=== PATIENT | male | born 1965 | race Caucasian/White ===

== ENCOUNTER 2025-09-01 19:21 | Emergency (ER) | payer OTHER ==
[2025-09-01] MEDS ORDERED: METHOCARBAMOL 500 MG TAB PO ONE (19:35)
[2025-09-01] MEDS ORDERED: METHOCARBAMOL750 M1 PO (19:36)
[2025-09-01] MEDS ORDERED: NAPROSYN500 MG PO (19:36)
[2025-09-01] MEDS ORDERED: METHOCARBAMOL 750 MG TAB PO ONE (20:09)
== END 2025-09-01 19:53 | disposition home or self-care (01) ==
LOC: ED 19:21
DX: S39.012A Strain of muscle, fascia and tendon of lower back, initial encounter (principal); X50.0XXA Overexertion from strenuous movement or load, initial encounter; Y93.89 Activity, other specified; Y92.89 Other specified places as the place of occurrence of the external cause; Y99.8 Other external cause status